=== PATIENT | female | born 1980 | race Caucasian/White ===

== ENCOUNTER 2017-08-23 21:55 | Emergency (ER) | payer MEDICAID ==
[2017-08-23] MEDS: IBUPROFEN 600 MG TAB PO (22:51)
[2017-08-23 23:34] LABS: MONOTEST Positive (NEG)
== END 2017-08-24 00:18 | disposition home or self-care (01) ==
LOC: FTE 08-24 00:18
DX: J02.9 Acute pharyngitis, unspecified (principal); B27.90 Infectious mononucleosis, unspecified without complication
CPT/HCPCS: 36415; 86308; 87880; 99283